=== PATIENT | female | born 1955 | race Hispanic/Latino ===

== ENCOUNTER 2017-04-12 10:53 | Emergency (ER) | payer MEDICARE, OTHER ==
[2017-04-12 11:00] VITALS: BP 118/69; PULSE 84; TEMP 98; O2SAT 98; BMI 30.9
[2017-04-12] MEDS ORDERED: Oxycodone/Acetaminophen 5/325 mg Tab PO ONE (11:24)
--- NOTE | 2017-04-12 11:30 | ED PDOC ---
HPI: Female Pain Time Seen by Provider: 04/12/17 11:19 Chief Complaint (Nursing): Female Genitourinary Chief Complaint (Provider): Draining boil History Per: Patient History/Exam Limitations: no limitations Onset/Duration Of Symptoms: Days Current Symptoms Are (Timing): Still Present Severity: Moderate Pain Scale Rating Of: 5 Quality Of Discomfort: Sharp Associated Symptoms: Back Pain (chronic), Constipation (chronic). denies: Fever , Chills, Nausea, Vomiting, Diarrhea Additional Complaint(s): 61 yo F w PMHx of HTN, DM2 controlled w insulin, and chronic back pain presents to ER for c/o of small abscess on R inner thigh that began draining today. The abscess initially developed 2-3 days ago, has slowly increased in size, causes sharp pain when pressure applied, drains yellow purulent fluid, and causes pain during urination. Pt denies fevers/chills, nausea, vomiting, diarrhea, vaginal discharge, lightheadedness, dizziness, or profuse sweating. Additionally, pt had fallen down while ascending staircases 2 days ago. She states falling towards right in order to avoid dropping her groceries, but she specifies falling because she tripped and not because of any LOC, headaches, dizziness, vision changes, lightheadedness, fevers, or chills. She landed on her Left wrist which has moderate, dull/achy pain and two < 1cm abrasions. Otherwise, she denies chest pain, palpitations, SOB, dyspnea, cough, or abdominal pain. PMD is Dr Kenney. Past Medical History Reviewed: Historical Data, Nursing Documentation, Vital Signs Vital Signs: Last Vital Signs Temp 98 F 04/12/17 10:59 Pulse 84 04/12/17 10:59 Resp BP 118/69 04/12/17 10:59 Pulse Ox 98 04/12/17 10:59 - Medical History PMH: Anxiety, Arthritis, Asthma, Back Problems (Slipped discs, Sciatica), Diabetes, Fractures (spine), Hepatitis (C), HTN, Chronic Kidney Disease, Chronic Pain - Surgical History Surgical History: Appendectomy (40 years ago) - Family History Family History: States: Unknown Family Hx - Immunization History Hx Tetanus Toxoid Vaccination: Yes Hx Influenza Vaccination: Yes Hx Pneumococcal Vaccination: No - Home Medications Home Medications: Ambulatory Orders Medication Instructions Recorded Alprazolam [Xanax] 2 mg PO BID 08/09/16 Losartan/Hydrochlorothiazide 1 tab PO DAILY 08/09/16 [Losartan Potassium-Hydrochlorothiazide 12.5 M] Oxycodone HCl/Acetaminophen 1 each PO QID 08/09/16 [Percocet 10-325 mg Tablet] glyBURIDE [Glyburide] 5 mg PO DAILY 08/09/16 metFORMIN [glucOPHAGE] 500 mg PO DAILY 08/09/16 oxyCODONE [oxyCODONE Immediate 30 mg PO QID 08/09/16 Release Tab] Clindamycin [Cleocin] 300 mg PO QID 7 Days 04/12/17 - Allergies Allergies/Adverse Reactions: Allergies Allergy/AdvReac Type Severity Reaction Status Date / Time naproxen sodium [From Aleve] Allergy Verified 03/21/16 09:10 Review of Systems ROS Statement: Except As Marked, All Systems Reviewed And Found Negative (see HPI) Physical Exam - Reviewed Nursing Documentation Reviewed: Yes Vital Signs Reviewed: Yes - Physical Exam Appears: Positive for: Non-toxic, No Acute Distress Head Exam: Positive for: ATRAUMATIC, NORMAL INSPECTION, NORMOCEPHALIC Skin: Positive for: Normal Color, Warm, Dry Eye Exam: Positive for: Normal appearance, EOMI, PERRL Neck: Positive for: Normal Cardiovascular/Chest: Positive for: Regular Rate, Rhythm. Negative for: Edema Respiratory: Positive for: Normal Breath Sounds. Negative for: Wheezing, Respiratory Distress Gastrointestinal/Abdominal: Positive for: Normal Exam, Soft. Negative for: Tenderness Back: Positive for: Normal Inspection. Negative for: L CVA Tenderness, R CVA Tenderness Extremity: Negative for: Pedal Edema, Calf Tenderness Neurologic/Psych: Positive for: Alert, hairspring assembler II-XII, Oriented - ECG O2 Sat by Pulse Oximetry: 98 - Progress ED Course And Treament: 61 yo F w PMHx of HTN, DM2 controlled w insulin, and chronic back pain presents to ER for c/o of small abscess on R inner thigh that began draining today -Left Wrist XR -Wound Cx -Percocet x1 -Plan on prescribing Clindamycin upon discharge -Will be given ER precautions to return in 3 days if not improved or worsened -Referral for Dr Curtis Disposition - Clinical Impression Clinical Impression: Abscess, Hand injury, Abrasion - Disposition Referrals: [facility] [Outside] - 04/13/17 Florin Curtis MD [Staff Provider] - 04/13/17 Disposition Time: 12:00 Condition: STABLE Additional Instructions: Return if not better in 3 days. Prescriptions: Clindamycin [Cleocin] 300 mg PO QID 7 Days Instructions: Hand Sprain (ED), Abscess (ED), Abrasion (ED)
--- NOTE | 2017-04-12 12:49 | RAD ---
PROCEDURE: Left Hand Radiographs. HISTORY: pain from fall COMPARISON: None available. FINDINGS: BONES: Lucency at the scaphoid waist suspected to reflect nondisplaced fracture. Correlate with physical exam. Scaphoid view may be considered for further assessment. Remainder of the visualized osseous structures appear intact without acute displaced fracture identified. JOINTS: No dislocation. SOFT TISSUES: Unremarkable. No evidence of radiopaque foreign body. OTHER FINDINGS: None. IMPRESSION: Lucency at the scaphoid waist suspected to reflect nondisplaced fracture. Correlate with physical exam. Scaphoid view may be considered for further assessment.
== END 2017-04-12 12:43 | disposition home or self-care (01) ==
LOC: H.ER 10:53
DX: L02.413 Cutaneous abscess of right upper limb (principal); B95.62 Methicillin resistant Staphylococcus aureus infection as the cause of diseases classified elsewhere; S69.92XA Unspecified injury of left wrist, hand and finger(s), initial encounter; W10.9XXA Fall (on) (from) unspecified stairs and steps, initial encounter; Y92.89 Other specified places as the place of occurrence of the external cause; E11.9 Type 2 diabetes mellitus without complications

== ENCOUNTER 2018-06-13 09:41 | Emergency (ER) | payer MEDICARE, OTHER ==
[2018-06-13 09:44] VITALS: BMI 31.7
[2018-06-13 09:46] VITALS: TEMP 98.1
--- NOTE | 2018-06-13 10:21 | ED PDOC ---
Upper Extremity Pain/Injury Chief Complaint (Provider): R wrist and arm pain History Per: Patient History/Exam Limitations: no limitations Onset/Duration Of Symptoms: Days (2) Current Symptoms Are (Timing): Still Present Quality: Sharp, Dull, Pressure Severity: Severe Pain Scale Rating Of: 10 Torso/Front (Pic): 1 - Tenderness, Swelling, Pain Worse W/Movement Torso/Back (Pic): 1 - Tenderness, Swelling, Pain Worse W/Movement Hands/Wrist (Pic): 1 - Tenderness, Swelling, Pain Worse W/Movement 2 - Tenderness, Swelling, Pain Worse W/Movement Exacerbating Factor(s): Strenuous Use Of Affected Area, Movement Additional Complaint(s): 62 yo F with pmhx of HTN, DM, ulcerative colitis, Hep C, and L nephrectomy with recent R renal failure presents to the ED with L wrist and arm pain. 2 days ago , she reports slipping on water in her bathroom and impacted her outstretched L arm at lateral wrist. She denies prior loss of consciousness or dizziness. She was able to take tylenol with hot/cold compress which help with edema and minimally alleviated her pain. Pain is at lateral wrist, radiates to 4th and 5th digits, and up to her elbow. Pain is sharp and throbbing in quality. Aggravated with movement. No history of prior injury to L wrist/forearm. She reports able to minimally move her 4th and 5th digits. She denies impact to her head. She also reports impact of her L knee to the wall. She reports minimal discomfort to her knee. She is able to walk, sensation of lower extremity is intact. ROM is wnl. No swelling to the knee. Denies CP/SOB/N/V PMD: Dr. Daniel Kenney in [place] GI/Digital Strategist: Dr. Schwartz at [place] Nephrology: Dr. Singh at [facility] pmhx: HTN, DM, ulcerative colitis, Hep C, and L nephrectomy with recent R renal failure surg: L knee total replacement 2010; L nephrectomy 2015 famhx: CA: throat and skin; emphysema Soc: denies smoking, etoh, illicit drugs Lives with daughter and son in law Allergy to naproxen: hives last taken 20 years prior <Santo Mendoza - Last Filed: 06/13/18 14:52> <Deisy Dailey - Last Filed: 06/14/18 10:04> Time Seen by Provider: 06/13/18 09:52 Chief Complaint (Nursing): Upper Extremity Problem/Injury Supervising Attending Note - Supervising Attending Note The Documented history was done by the: Physician Hook Tender, Attending Physician The documented physical exam was done by the: Physician Hook Tender, Attending Physician The documented procedures were done by the: Physician Hook Tender, Attending Physician - Attestation: I have personally seen and examined this patient.: Yes I have fully participated in the care of the patient.: Yes I have reviewed all pertinent clinical information: Yes <Deisy Dailey - Last Filed: 06/14/18 10:04> Past Medical History Vital Signs: Last Vital Signs Temp 98.1 F 06/13/18 09:48 Pulse 88 06/13/18 09:48 Resp 18 06/13/18 09:48 BP 128/76 06/13/18 09:48 Pulse Ox 97 06/13/18 09:48 - Medical History PMH: Anxiety, Arthritis, Asthma, Back Problems (Slipped discs, Sciatica), Diabetes, Fractures (spine), Hepatitis (C), HTN, Chronic Kidney Disease, Chronic Pain Other PMH: Ulcerative colitis - Surgical History Surgical History: Appendectomy (40 years ago) Other surgeries: L nephrectomy; L knee - Family History Family History: States: Other Other Family History: Emphysema; CA: throat and skin - Living Arrangements Living Arrangements: With Family - Social History Current smoker - smoking cessation education provided: No Alcohol: None Drugs: Denies - Immunization History Hx Tetanus Toxoid Vaccination: Yes Hx Influenza Vaccination: Yes Hx Pneumococcal Vaccination: No <Santo Mendoza - Last Filed: 06/13/18 14:52> Reviewed: Historical Data, Nursing Documentation, Vital Signs Vital Signs: Last Vital Signs Temp 98.1 F 06/13/18 16:10 Pulse 80 06/13/18 16:10 Resp 19 06/13/18 16:10 BP 130/78 06/13/18 16:10 Pulse Ox 99 06/13/18 16:10 <Deisy Dailey - Last Filed: 06/14/18 10:04> - Home Medications Home Medications: Ambulatory Orders Medication Instructions Recorded Alprazolam [Xanax] 2 mg PO BID 08/09/16 Losartan/Hydrochlorothiazide 1 tab PO DAILY 08/09/16 [Losartan Potassium-Hydrochlorothiazide 12.5 M] Oxycodone HCl/Acetaminophen 1 each PO QID 08/09/16 [Percocet 10-325 mg Tablet] glyBURIDE [Glyburide] 5 mg PO DAILY 08/09/16 metFORMIN [glucOPHAGE] 500 mg PO DAILY 08/09/16 oxyCODONE [oxyCODONE Immediate 30 mg PO QID 08/09/16 Release Tab] Clindamycin [Cleocin] 300 mg PO QID 7 Days cap 04/12/17 Gabapentin 300 mg PO BID #14 capsule 06/13/18 oxyCODONE/Acetaminophen [Percocet 1 ea PO PRN PRN #10 tab 06/13/18 5/325 mg Tab] - Allergies Allergies/Adverse Reactions: Allergies Allergy/AdvReac Type Severity Reaction Status Date / Time naproxen sodium [From Aleve] Allergy ANAPHYLAXIS Verified 06/13/18 09:53 Review of Systems Constitutional: Negative for: Fever Cardiovascular: Negative for: Chest Pain Respiratory: Negative for: Shortness of Breath Gastrointestinal: Negative for: Nausea, Vomiting Musculoskeletal: Positive for: Arm Pain (L), Hand Pain (L) Neurological: Positive for: Weakness (L hand), Numbness (L hand). Negative for : Confusion <Kiko Mendozaang - Last Filed: 06/13/18 14:52> ROS Statement: Except As Marked, All Systems Reviewed And Found Negative <Deisy Dailey A - Last Filed: 06/14/18 10:04> Physical Exam - Reviewed Vital Signs Reviewed: Yes - Physical Exam Appears: Positive for: Uncomfortable Head Exam: Positive for: ATRAUMATIC Skin: Positive for: Normal Color, Warm, Dry Eye Exam: Positive for: EOMI Neck: Positive for: Painless ROM Cardiovascular/Chest: Positive for: Regular Rate, Rhythm. Negative for: Murmur Respiratory: Positive for: Normal Breath Sounds. Negative for: Wheezing Gastrointestinal/Abdominal: Positive for: Normal Exam, Bowel Sounds, Soft. Negative for: Tenderness Back: Negative for: L CVA Tenderness, R CVA Tenderness Extremity: Positive for: Tenderness (L hand), Other (Sensation intact, motor in L metatarsals is limited to pain. minimal rom to L wrist. Radial pulses palpable in L. Capillary refill <2 seconds in all L metatarsals) Neurologic/Psych: Positive for: Alert, desulfurizer hand II-XII, Oriented, Gait <Santo Mendoza - Last Filed: 06/13/18 14:52> - Reviewed Nursing Documentation Reviewed: Yes <Deisy Dailey - Last Filed: 06/14/18 10:04> - ECG O2 Sat by Pulse Oximetry: 97 - Radiology X-Ray: Viewed By Mo - Progress ED Course And Treament: 62 yo F with pmhx of dm, htn, anxiety, hep c presents with recent 2 day injury of trauma to L lateral wrist and subsequent L knee impact to wall. -XR of L hand and knee -Percocet 5/325 for pain management; allergy to naproxen; recent use of acetaminophen 11:00 -XR reviewed -CT w/o of upper extremity ordered to review carpal bones for displacement/ fracture 14:50 -CT hand reviewed: questionable nondisplaced fracture of distal radial fracture Pt discharged home with pain medication and thumb spica splint ER PREcautions reviewed with patient Case dw Dr. Asim Mendoza MD PGY2 <Santo Mendoza - Last Filed: 06/13/18 14:52> Disposition - Patient ED Disposition Is Patient to be Admitted: No - Disposition Disposition: Routine/Home Disposition Time: 14:52 <Santo Mendoza - Last Filed: 06/13/18 14:52> Counseled Patient/Family Regarding: Studies Performed, Diagnosis, Need For Followup <Deisy Dailey - Last Filed: 06/14/18 10:04> - Clinical Impression Clinical Impression: Fracture of wrist - Disposition Referrals: Seun Humphries III, MD [Staff Provider] - Condition: GOOD Additional Instructions: CHERI DOMINGUEZ, thank you for letting us take care of you today. Your provider was Deisy Dailey MD and you were treated for FALL,LT ARM PAIN. The emergency medical care you received today was directed at your acute symptoms. If you were prescribed any medication, please fill it and take as directed. It may take several days for your symptoms to resolve. Return to the Emergency Department if your symptoms worsen, do not improve, or if you have any other problems. Please contact your doctor or call one of the physicians/clinics you have been referred to that are listed on the Patient Visit Information form that is included in your discharge packet. Bring any paperwork you were given at discharge with you along with any medications you are taking to your follow up visit. Our treatment cannot replace ongoing medical care by a primary care provider outside of the emergency department. Thank you for allowing the [facility] team to be part of your care today. If you had an X-Ray or CT scan: A Radiologist will review the ED reading if any change in treatment is needed we will contact you. If you had a blood, urine, or wound culture: It will take several days for the results, if any change in treatment is needed we will contact you. If you had an STI test: It will take 48 hours for the results. Please call after 1 week if you have not heard back. Prescriptions: Gabapentin 300 mg PO BID #14 capsule oxyCODONE/Acetaminophen [Percocet 5/325 mg Tab] 1 ea PO PRN PRN #10 tab PRN Reason: Pain, Moderate (4-7) Instructions: Wrist Fracture (DC)
[2018-06-13] MEDS ORDERED: Oxycodone/Acetaminophen 5/325 mg Tab PO STA (10:41)
[2018-06-13] MEDS ORDERED: Oxycodone/Acetaminophen 5/325 mg Tab ONE (10:59)
--- NOTE | 2018-06-13 11:15 | RAD ---
Date of service: 06/13/2018 PROCEDURE: Left Knee Radiographs. HISTORY: Pain. COMPARISON: 06/25/2011 FINDINGS: BONES: Status post total knee replacement. Prosthesis appears intact. No evidence of prosthesis loosening. No osseous fracture. JOINTS: As above JOINT EFFUSION: None. OTHER FINDINGS: None. IMPRESSION: Left total knee replacement. No acute fracture.
--- NOTE | 2018-06-13 11:16 | RAD ---
Date of service: 06/13/2018 PROCEDURE: Left Wrist Radiographs. HISTORY: Trauma to L lateral wrist COMPARISON: None. FINDINGS: BONES: Normal. No fracture. JOINTS: Normal. No dislocation. SOFT TISSUES: Normal. OTHER FINDINGS: None. IMPRESSION: Normal left wrist radiographs.
--- NOTE | 2018-06-13 14:35 | CT ---
Date of service: 06/13/2018 PROCEDURE: CT left wrist 10 4 HISTORY: 2 day history of L lateral wrist trauma COMPARISON: Not available TECHNIQUE: 1.5 mm contiguous axial sections were acquired through the left wrist and forearm. Sagittal and coronal images were reformatted from the axial scan. FINDINGS: There is a questionable nondisplaced transverse distal radial fracture. No other fracture is identified. There is a small joint effusion/hemarthrosis along the palmar aspect of the distal radius. The joint spaces and articular surfaces are intact. Normal carpal alignment is maintained. The carpal -metacarpal articulations are intact. The remainder of the radius and ulna are intact. IMPRESSION: Questionable nondisplaced distal radial fracture. If clinically warranted consider evaluation with magnetic resonance imaging or follow-up with plain radiography 7-10 days. No other fracture identified.
[2018-06-13 16:11] VITALS: BP 130/78; PULSE 80; RESP 19; O2SAT 99
== END 2018-06-13 16:17 | disposition home or self-care (01) ==
LOC: H.ER 09:41
DX: S62.91XA Unspecified fracture of right hand, initial encounter for closed fracture (principal); W19.XXXA Unspecified fall, initial encounter; Y92.002 Bathroom of unspecified non-institutional (private) residence as the place of occurrence of the external cause; B19.20 Unspecified viral hepatitis C without hepatic coma; E11.22 Type 2 diabetes mellitus with diabetic chronic kidney disease; I12.9 Hypertensive chronic kidney disease with stage 1 through stage 4 chronic kidney disease, or unspecified chronic kidney disease; Z79.84 Long term (current) use of oral hypoglycemic drugs

== ENCOUNTER 2018-08-16 13:03 | Emergency (ER) | payer MEDICARE, OTHER ==
[2018-08-16 13:03] VITALS: BMI 31.7
[2018-08-16 13:24] VITALS: O2SAT 99
--- NOTE | 2018-08-16 14:40 | ED PDOC ---
HPI: SOB/CHF/COPD Time Seen by Provider: 08/16/18 14:38 Chief Complaint (Nursing): Shortness Of Breath Chief Complaint (Provider): SOB History Per: Patient Additional Complaint(s): 62-year-old female with history of asthma presents with shortness of breath and wheezing ongoing for 2 weeks. Patient saw her primary doctor 2 weeks ago and was given course of Zithromax but does not feel any better despite completing this medication. Patient denies any fever or chills. She states cough is nonproductive and she feels as if there is phlegm stuck in her chest. PMD: Dr. Daniel Kenney Past Medical History Reviewed: Historical Data, Nursing Documentation, Vital Signs Vital Signs: Last Vital Signs Temp 99 F 08/16/18 13:21 Pulse 72 08/16/18 13:21 Resp 20 08/16/18 13:32 BP 150/80 08/16/18 13:21 Pulse Ox 99 08/16/18 13:21 - Medical History PMH: Anxiety, Arthritis, Asthma, Back Problems (Slipped discs, Sciatica), Diabetes, Fractures (spine), Hepatitis (C), HTN, Chronic Kidney Disease, Chronic Pain - Surgical History Surgical History: Appendectomy (40 years ago) Other surgeries: left nephrectomy - Family History Family History: States: Unknown Family Hx - Living Arrangements Living Arrangements: With Family - Social History Current smoker - smoking cessation education provided: No Alcohol: None Drugs: Denies - Home Medications Home Medications: Ambulatory Orders Medication Instructions Recorded Alprazolam [Xanax] 2 mg PO BID 08/09/16 Losartan/Hydrochlorothiazide 1 tab PO DAILY 08/09/16 [Losartan Potassium-Hydrochlorothiazide 12.5 M] Oxycodone HCl/Acetaminophen 1 each PO QID 08/09/16 [Percocet 10-325 mg Tablet] glyBURIDE [Glyburide] 5 mg PO DAILY 08/09/16 metFORMIN [glucOPHAGE] 500 mg PO DAILY 08/09/16 oxyCODONE [oxyCODONE Immediate 30 mg PO QID 08/09/16 Release Tab] Clindamycin [Cleocin] 300 mg PO QID 7 Days cap 04/12/17 Gabapentin 300 mg PO BID #14 capsule 06/13/18 oxyCODONE/Acetaminophen [Percocet 1 ea PO PRN PRN #10 tab 06/13/18 5/325 mg Tab] Promethazine HCl/Codeine 5 ml PO Q4 PRN #200 ml 08/16/18 [Prometh-Codein 6.25-10 mg/5 ml] predniSONE [Prednisone] 20 mg PO ASDIR #15 tab 08/16/18 - Allergies Allergies/Adverse Reactions: Allergies Allergy/AdvReac Type Severity Reaction Status Date / Time naproxen sodium [From Aleve] Allergy ANAPHYLAXIS Verified 08/16/18 13:21 Review of Systems ROS Statement: Except As Marked, All Systems Reviewed And Found Negative Constitutional: Negative for: Fever Cardiovascular: Negative for: Chest Pain Respiratory: Positive for: Cough, Shortness of Breath, SOB with Exertion, Wheezing Physical Exam - Reviewed Nursing Documentation Reviewed: Yes Vital Signs Reviewed: Yes - Physical Exam Appears: Positive for: Well, Non-toxic, No Acute Distress Skin: Positive for: Normal Color. Negative for: Rash Eye Exam: Positive for: Normal appearance Cardiovascular/Chest: Positive for: Regular Rate, Rhythm Respiratory: Positive for: Other (Diminished breath sounds bilaterally, bilateral inspiratory and Excedrin wheezing noted, mild respiratory distress) Gastrointestinal/Abdominal: Positive for: Soft. Negative for: Tenderness, Distended Extremity: Positive for: Normal ROM. Negative for: Pedal Edema Neurologic/Psych: Positive for: Alert, Oriented - Laboratory Results Result Diagrams: 08/16/18 15:06 08/16/18 15:06 - ECG Interpretation Of ECG: Normal sinus rhythm 63 bpm with no acute changes, reviewed by PA and ED attending O2 Sat by Pulse Oximetry: 99 Pulse Ox Interpretation: Normal - Other Rad CXR X-Ray: Interpreted by Me, Viewed By Me X-Ray Interpretation: no acute finding Nebulizer Treatments/Peak Flow - Duonebs Number of Bronchodilator Doses given?: 3 (duoneb) - Pre/Post Peak Flow Pre Treatment Peak Flow: 150 Post treatment Peak Flow: 200 - Steroid Treatment Steroid: IV (125 mg IV solumedrol) - Clinical Response Clinical Response: Improved Medical Decision Making Medical Decision Makin-year-old female with shortness of breath Plan: EKG CXR CBC CMP Troponin Duoneb x 3 125 mg IV solumedrol Patient reports improvement to shortness of breath and wheezing status post meds given in ED. She is aware of all diagnostic testing results, all questions answered. Patient was given prescription for prednisone. She has albuterol pump inhaler and albuterol solution for nebulizer machine she will continue with at home. Advise PMD follow-up on Sunday. Patient is aware she can return to ED any time if acutely worse. Disposition - Clinical Impression Clinical Impression: Asthma exacerbation - Patient ED Disposition Is Patient to be Admitted: No Counseled Patient/Family Regarding: Studies Performed, Diagnosis, Need For Followup, Rx Given - Disposition Referrals: Daniel Kenney JD, MD [Family Provider] - Disposition: Routine/Home Disposition Time: 16:49 Condition: STABLE Additional Instructions: Continue with albuterol pump inhaler and albuterol nebulizer treatments as ne eded. Take prescription meds as directed. Follow-up on Sunday with primary doctor. Return to ED any time if acutely worse. Prescriptions: predniSONE [Prednisone] 20 mg PO ASDIR #15 tab Promethazine HCl/Codeine [Prometh-Codein 6.25-10 mg/5 ml] 5 ml PO Q4 PRN #200 ml PRN Reason: Cough Instructions: Asthma, Adult (DC) Forms: [id number] ([place]) Results - Lab Results Lab Results: 08/16/18 08/16/18 15:06 15:06 WBC 6.0 RBC 4.64 Hgb 12.3 Hct 38.1 MCV 82.0 MCH 26.5 L MCHC 32.4 L RDW 14.5 Plt Count 231 MPV 9.4 Neut % (Auto) 59.5 Lymph % (Auto) 32.5 [place] % (Auto) 6.2 Eos % (Auto) 1.4 Baso % (Auto) 0.4 Neut # (Auto) 3.6 Lymph # (Auto) 1.9 [place] # (Auto) 0.4 Eos # (Auto) 0.1 Baso # (Auto) 0.0 Sodium 141 Potassium 3.5 L Chloride 104 Carbon Dioxide 25 Anion Gap 16 BUN 20 H Creatinine 0.6 L Est GFR ( Amer) > 60 Est GFR (Non-Af Amer) > 60 Random Glucose 124 H Calcium 9.7 Total Bilirubin 0.3 AST 69 H ALT 92 H Alkaline Phosphatase 80 Troponin I < 0.0120 Total Protein 8.4 H Albumin 4.2 Globulin 4.2 H Albumin/Globulin Ratio 1.0
[2018-08-16] MEDS ORDERED: Albuterol-Ipratrop 3 mg / 0.5 (3 ml) UD INH STA (14:44)
[2018-08-16] MEDS ORDERED: Albuterol-Ipratrop 3 mg / 0.5 (3 ml) UD ONE (15:11)
[2018-08-16 15:28] LABS: BASO % 0.4 % (0.0-2.0); EOS # 0.1 K/uL (0.0-0.7); EOS % 1.4 % (0.0-4.0); HEMOGLOBIN 12.3 g/dL (12.0-16.0); LYMPH # 1.9 K/uL (1.0-4.3); LYMPH % 32.5 % (20.0-40.0); MEAN CORPUSCULAR HEMOGLOBIN 26.5 pg (27.0-31.0); MEAN CORPUSCULAR HGB CONC 32.4 g/dL (33.0-37.0); MEAN PLATELET VOLUME 9.4 fl (7.2-11.7); MONO # 0.4 K/uL (0.0-0.8); MONO % 6.2 % (0.0-10.0); NEUT # 3.6 K/uL (1.8-7.0); NEUT % 59.5 % (50.0-75.0); RBC 4.64 Mil/uL (3.80-5.20); RED CELL DISTRIBUTION WIDTH 14.5 % (11.5-14.5)
[2018-08-16 15:37] LABS: ALBUMIN 4.2 g/dL (3.5-5.0); ALT/SGPT 92 U/L (9-52); AST/SGOT 69 U/L (14-36); BLOOD UREA NITROGEN 20 mg/dl (7-17); CALCIUM 9.7 mg/dL (8.4-10.2); GFR NON-AFRICAN AMERICAN > 60
--- NOTE | 2018-08-16 16:20 | RAD ---
HISTORY: sob COMPARISON: Chest x-ray performed 02/05/14 TECHNIQUE: Chest PA and lateral FINDINGS: LUNGS: No focal consolidation. Please note that chest x-ray has limited sensitivity for the detection of pulmonary masses. PLEURA: No significant pleural effusion identified. No definite pneumothorax . CARDIOVASCULAR: Heart size appears within normal limits. Ectatic aorta which contains atherosclerotic calcifications. Suspect small calcified granulomas or lymph nodes in the region of the right hilum. OSSEOUS STRUCTURES: Degenerative changes of the spine. VISUALIZED UPPER ABDOMEN: Unremarkable. OTHER FINDINGS: None. IMPRESSION: Ectatic aorta which contains atherosclerotic calcifications. Suspect small calcified granulomas or lymph nodes in the region of the right hilum.
[2018-08-16 17:42] VITALS: BP 150/89; PULSE 80; RESP 21; TEMP 98.9
--- NOTE | 2018-08-17 16:54 | CARD ---
APPROVED REPORT Date of service: 08/16/2018 EKG Measurement Heart [id number] [id number] <Conclusion> Normal sinus rhythm Normal ECG
== END 2018-08-16 16:58 | disposition home or self-care (01) ==
LOC: H.ER 13:03
DX: J45.901 Unspecified asthma with (acute) exacerbation (principal)
CPT/HCPCS: 71046; 80053; 84484; 85025; 93005; 94150; 94640; 96374; 99284; J2930